=== PATIENT | female | born 1965 | race Caucasian/White ===

== ENCOUNTER 2020-04-01 15:05 | Outpatient (CLI) | payer OTHER, SELFPAY ==
--- NOTE | ~2020-04-01 | MM_ITS ---
EXAMINATION: MM screening [facility] BI w [place] HISTORY: Screening mammogram TECHNIQUE: Craniocaudal and mediolateral oblique 3-D tomosynthesis images were obtained and synthetic 2-D images were generated. CAD analysis was submitted and interpreted. COMPARISON: Comparison to multiple prior studies sequentially, with oldest reviewed study dated 03/22. BREAST PARENCHYMAL COMPOSITION: There are scattered areas of fibroglandular density. FINDINGS: There is a new mass in the lower outer quadrant of the right breast, middle third. The left breast is stable without evidence for malignancy. IMPRESSION: 1. New right breast mass, lower outer quadrant, middle third. 2. Additional mammographic views and possible breast ultrasound are recommended. BI-RADS Category 0: Incomplete: Needs additional imaging evaluation. Reviewed, dictated and finalized at location A. IMPRESSION: 1. New right breast mass, lower outer quadrant, middle third. 2. Additional mammographic views and possible breast ultrasound are recommended . BI-RADS Category 0: Incomplete: Needs additional imaging evaluation.
== END 2020-04-01 15:06 | disposition home or self-care (01) ==
LOC: ANHIMG 15:13
PROVIDERS: PCP Internal Medicine
DX: Z12.31 Encounter for screening mammogram for malignant neoplasm of breast (principal); R92.8 Other abnormal and inconclusive findings on diagnostic imaging of breast
CPT/HCPCS: 77063; 77067

== ENCOUNTER 2020-04-22 13:32 | Outpatient (CLI) | payer OTHER, SELFPAY ==
--- NOTE | ~2020-04-22 | MMUS_ITS ---
EXAMINATION: MM diagnostic mammo unilat RT, US breast RT complete HISTORY: Follow-up possible right breast mass TECHNIQUE: Additional 3-D tomosynthesis images of the right breast were performed and synthetic 2-D i mages were generated. CAD analysis was submitted and interpreted. High resolution right breast ultras ound was performed. COMPARISON: Comparison to multiple prior studies sequentially, with oldest reviewed study dated 03/05. BREAST PARENCHYMAL COMPOSITION: Breast composed of scattered areas of fibroglandular density FINDINGS: MAMMOGRAPHIC FINDINGS: There is a 5 mm mass in the subareolar location of the right breast. No suspicious calcifications or architectural distortion. ULTRASOUND: Right breast ultrasound: At 7:00 near the nipple there is a 5 mm cyst in the abnormality seen on mammography. IMPRESSION: 1. No evidence for malignancy in the right breast. Benign finding. 2. Routine yearly screening mammogram and regular clinical breast examination are recommended. BI-RADS Category 2: Benign finding(s). Reviewed, dictated and finalized at location A. IMPRESSION: 1. No evidence for malignancy in the right breast. Benign finding. 2. Routine yearly screening mammogram and regular clinical breast examination a re recommended. BI-RADS Category 2: Benign finding(s).
== END 2020-04-22 13:33 | disposition home or self-care (01) ==
PROVIDERS: PCP Internal Medicine
DX: R92.8 Other abnormal and inconclusive findings on diagnostic imaging of breast (principal)
CPT/HCPCS: 76641; 77065

== ENCOUNTER 2021-04-23 13:52 | Outpatient (CLI) | payer OTHER, SELFPAY ==
--- NOTE | ~2021-04-23 | MM_ITS ---
EXAMINATION: MM screening [facility] BI w [place] HISTORY: Screening TECHNIQUE: Craniocaudal and mediolateral oblique 3-D tomosynthesis images were obtained and synthetic 2-D images were generated. CAD analysis was submitted and interpreted. COMPARISON: Comparison to multiple prior studies sequentially, with oldest reviewed study dated 03/03. BREAST PARENCHYMAL COMPOSITION: There are scattered areas of fibroglandular density. FINDINGS: There are focal asymmetry central aspect of the right breast without discrete mass or suspi cious cluster of calcifications. The left breast is stable without evidence for malignancy. IMPRESSION: 1. Focal right breast asymmetry centrally, mid breast. 2. Additional mammographic views and possible breast ultrasound are recommended. BI-RADS Category 0: Incomplete: Needs additional imaging evaluation. Reviewed, dictated and finalized at location A. IMPRESSION: 1. Focal right breast asymmetry centrally, mid breast. 2. Additional mammographic views and possible breast ultrasound are recommended . BI-RADS Category 0: Incomplete: Needs additional imaging evaluation.
== END 2021-04-23 13:53 | disposition home or self-care (01) ==
PROVIDERS: PCP Internal Medicine; Visit Provider Internal Medicine
DX: Z12.31 Encounter for screening mammogram for malignant neoplasm of breast (principal); R92.8 Other abnormal and inconclusive findings on diagnostic imaging of breast
CPT/HCPCS: 77063; 77067

== ENCOUNTER 2021-05-20 13:07 | Outpatient (CLI) | payer OTHER, SELFPAY ==
--- NOTE | ~2021-05-20 | MM_ITS ---
EXAMINATION: MM diagnostic [facility] RT w [place] HISTORY: Right breast focal asymmetry on screening mammogram TECHNIQUE: Additional 3-D tomosynthesis images of the right breast were performed and synthetic 2-D i mages were generated. CAD analysis was submitted and interpreted. COMPARISON: 04/23/2021, 04/22/2020, 04/01/2020, 02/21/2019 FINDINGS: There is a return to baseline fibroglandular appearance with spot compression of the right breast in the area questioned on screening mammogram. IMPRESSION: 1. No mammographic evidence of malignancy. 2. Recommend routine screening mammography in one year. BI-RADS Category 1: Negative Reviewed, dictated and finalized at location B.
== END 2021-05-20 13:08 | disposition home or self-care (01) ==
PROVIDERS: PCP Internal Medicine
DX: R92.8 Other abnormal and inconclusive findings on diagnostic imaging of breast (principal)
CPT/HCPCS: 77061; 77065; G0279

== ENCOUNTER 2022-08-14 13:05 | Outpatient (CLI) | payer OTHER, SELFPAY ==
--- NOTE | ~2022-08-14 | MM_ITS ---
EXAMINATION: MM screening [facility] BI w [place] HISTORY: Screening mammogram TECHNIQUE: Craniocaudal and mediolateral oblique 3-D tomosynthesis images were obtained and synthetic 2-D images were generated. CAD analysis was submitted and interpreted. COMPARISON: 05/20/2021, 04/23/2021, 04/22/2020, 04/01/2020, 02/21/2019 BREAST PARENCHYMAL COMPOSITION: The breasts are heterogeneously dense, which may obscure small masses . FINDINGS: There is chronic focal asymmetry in the central left breast. No suspicious mass, calcificat ion, or architectural distortion are identified in either breast to suggest malignancy. There has bee n no suspicious interval change. IMPRESSION: 1. No mammographic evidence of malignancy. 2. Recommend routine screening mammography in one year. BI-RADS Category 2: Benign finding(s). Reviewed, dictated and finalized at location A. APPLICATION ARCHITECT
== END 2022-08-14 13:06 | disposition home or self-care (01) ==
DX: Z12.31 Encounter for screening mammogram for malignant neoplasm of breast (principal)
CPT/HCPCS: 77063; 77067

== ENCOUNTER 2023-12-23 08:52 | Outpatient (CLI) | payer OTHER, SELFPAY ==
--- NOTE | ~2023-12-23 | MM_ITS ---
EXAMINATION: MM screening [facility] BI w [place] HISTORY: Screening TECHNIQUE: Craniocaudal and mediolateral oblique 3-D tomosynthesis images were obtained and synthetic 2-D images were generated. CAD analysis was submitted and interpreted. COMPARISON: Comparison to multiple prior studies sequentially, with oldest reviewed study dated 04/23. BREAST PARENCHYMAL COMPOSITION: There are scattered areas of fibroglandular density. FINDINGS: There is no evidence of suspicious mass, calcification, or architectural distortion to sugg est malignancy in either breast. There has been no suspicious interval change. IMPRESSION: 1. No mammographic evidence of malignancy. 2. Recommend routine screening mammography in one year. BI-RADS Category 1: Negative Reviewed, dictated and finalized at location A.
== END 2023-12-23 08:53 | disposition home or self-care (01) ==
LOC: ANHIMG 08:57
DX: Z12.31 Encounter for screening mammogram for malignant neoplasm of breast (principal)
CPT/HCPCS: 77063; 77067

== ENCOUNTER 2024-07-24 23:01 | Emergency (ER) | payer OTHER, SELFPAY ==
--- NOTE | ~2024-07-24 | CT_ITS ---
Non-contrast Head CT History: Head injury Technique: Axial non-contrast imaging of the brain was performed. Dose reduction technique was used on this scan by utilizing automated exposure control and iterative reconstruction technique. The dose -length product (DLP) was 681.00 mGy-cm. Findings: There is no evidence of intracranial hemorrhage, mass lesion, or acute infarct. Brain par enchyma appears normal. The ventricles and subarachnoid spaces are normal in size. The calvarium ap pears normal. The visualized paranasal sinuses and mastoid air cells are clear. There is superficial hematoma at the left infraorbital region. Impression: No intracranial abnormality seen. Hematoma at the left infraorbital region. Reviewed, dictated and finalized at [facility]. DRY PRESS OPERATOR Impression: No intracranial abnormality seen. Hematoma at the left infraorbital region.
--- NOTE | ~2024-07-24 | CT_ITS ---
CT Facial Bones and Cervical Spine Clinical Indication: Status post fall, injury Technique: Contiguous axial scans were obtained through the facial bones and cervical spine followed by coronal and sagittal reconstructions. Dose reduction technique was used on this scan by utilizing automated exposure control and iterative reconstruction technique. The dose-length product (DLP) was 175.83 mGy-cm. Findings: CT facial bones: No fractures are identified. The visualized paranasal sinuses are clear. Intraorbita l soft tissues appear normal. There is left periorbital soft tissue swelling with superficial hematom a over the left maxillary region/left cheek. CT cervical spine: No fractures or subluxation. Intervertebral disc spaces are relatively well-prese rved. There is right facet arthropathy at C2-C3, mild right neural foraminal narrowing. No prevertebr al soft tissue swelling. Impression: No fracture is seen in the facial bones. Left periorbital soft tissue swelling with superficial hematoma over the left maxillary region/left c heek. No fracture or subluxation of the cervical spine. Reviewed, dictated and finalized at location M. GER RN Impression: No fracture is seen in the facial bones. Left periorbital soft tissue swelling with superficial hematoma over the left m axillary region/left cheek. No fracture or subluxation of the cervical spine.
--- NOTE | ~2024-07-24 | XR_ITS ---
Left Hand Technique: PA, oblique, and lateral views were obtained. Clinical History: Fifth digit injury Findings: No acute fracture or dislocation is seen. Osseous alignment is anatomic. There is mild to m oderate degenerative change of the first CMC joint. Soft tissues are unremarkable. Impression: [id number] degenerative change of the first CMC joint. Reviewed, dictated and finalized at location . MAKER Impression: [id number] degenerative change of the first CMC joint.
[2024-07-24 23:04] VITALS: BP 174/93; PULSE 94; RESP 16; TEMP 36.3; O2SAT 100
--- NOTE | 2024-07-24 23:09 | PC.NURSE ---
Pt has significant bruising and swelling to L. cheek. swollen upper and bottom lip. 2 upper teeth missing. Bleeding controlled.
[2024-07-24 23:31] VITALS: BP 154/95; PULSE 90; RESP 10; O2SAT 99
--- NOTE | 2024-07-24 23:31 | ED.FALL ---
HPI - Fall General Chief Complaint: Fall Stated Complaint: FALL, FACIAL TRAUMA Time Seen by Provider: 07/24/24 23:19 History of Present Illness HPI Narrative: 59-year-old female presents to the emergency department via EMS after a ground level fall that occurred prior to arrival. Patient states she was leaving a bar after having 4 beers when she tripped on uneven concrete and fell to the ground. States she landed on her face. She did not lose consciousness. She is not anticoagulated. She is presenting with pain and swelling beneath the left orbit, pain and swelling to the left upper lip. She states she lost 3 teeth during the fall. She is also reporting pain to her left pinky. Last Tdap unknown. Patient denies vision changes, focal numbness or weakness. Related Data Allergies Allergy/AdvReac Type Severity Reaction Status Date / Time No Known Allergies Allergy Unverified 08/23/11 09:53 Review of Systems Review of Systems: All systems reviewed & are unremarkable except as noted in HPI and below Exam Narrative: GENERAL: Well-appearing, well-nourished, and in no acute distress. HEAD: Normocephalic, atraumatic. EYES: PERRLA and EOMI. No proptosis, no scleral or conjunctival changes to the left eye ENT: Nares clear, no rhinorrhea or epistaxis. Mucous membranes moist. No epistaxis, no septal hematoma. Hematoma with overlying ecchymosis inferior to the left orbit. Edema to the left upper lip with abrasion just superior to the left lip, but no internal or external lacerations. Teeth 9and 11 are completely missing, tooth #10 is fractured at the gum line. Otherwise no internal or external lacerations to the mouth. NECK: No midline cervical spinous tenderness, step-offs or deformities BACK: No midline thoracolumbar spinous tenderness, step-offs or deformities CHEST: Clear to auscultation. No respiratory distress. HEART: Regular rate and rhythm. No murmur heard. Normal peripheral pulses. ABDOMEN: Soft, nontender, nondistended, normal active bowel sounds. EXTREMITIES: LUE: Tenderness to the 5th MCP and PIP with overlying edema. No tenderness remainder of hand, wrist, no snuffbox tenderness. Cap refill less than 2. Radial pulse 2 +. Sensation intact. Full active and passive range of motion of all digits. No tenderness remainder of upper lower extremities with full range of motion of all extremities. SKIN: See ENT exam NEURO: No focal deficits. Alert and oriented x3 Course Vital Signs Vital signs: Vital Signs Temperature 97.3 F L 07/24/24 23:04 Pulse Rate 94 07/24/24 23:04 Respiratory Rate 16 07/24/24 23:04 Blood Pressure 174/93 H 07/24/24 23:04 Pulse Oximetry 100 07/24/24 23:04 Oxygen Delivery Room Air 07/24/24 23:04 Temperature 97.3 F L 07/24/24 23:04 Pulse Rate 86 07/25/24 03:35 Respiratory Rate 18 07/25/24 03:35 Blood Pressure 98/60 L 07/25/24 03:35 Pulse Oximetry 98 07/25/24 03:35 Oxygen Delivery Room Air 07/24/24 23:04 MDM - Fall MDM Narrative Medical decision making narrative: 59-year-old female presents emergency department after ground level mechanical fall that occurred prior to arrival. Patient did reportedly have 4 beers prior to injury. Vitals with hypertension 174/93, otherwise unremarkable. Exam is significant for the above. Patient is neurovascular intact. Patient lost teeth #9-11 as noted above. There are no intraoral lacerations to suture. She does have significant edema and hematoma inferior to the left to. She has no signs of a retrobulbar hematoma including eye pain, no proptosis, no vision changes. CT brain shows no acute intracranial hemorrhage, no midline shift or mass effect. There is territorial jernigan-white matter differentiation maintained throughout and age-related cerebral volume loss. CT facial bones and cervical spine showed no acute findings. Patient updated on workup. She was given her Tdap vaccine and a dose of [place] with improvement in symptoms. Her friends are now at bedside. She does not appear clinically intoxicated. Wounds were cleaned with normal saline. Encouraged rice, Tylenol/ibuprofen for pain will provide short course of [place] for breakthrough pain. Encouraged follow-up with her dentist and PCP. Strict ED return precautions discussed. She is agreeable with the plan verbalized understanding. When the patient stood up quickly to leave, she became very diaphoretic, lightheaded, dizzy and nauseous. The patient sat back down in the bed and lost consciousness for a few seconds. This was all witnessed by nursing staff. I immediately went into the room and she woke up shortly after. Patient was pale and diaphoretic and stated she felt nauseous. After a few seconds she returned to baseline. Suspect she had a vasovagal or orthostatic episode. She denies chest pain or shortness of breath. I did offer to obtain lab work and and EKG, however she declined states she like to go home. After several minutes of monitoring she ambulated in the ED without difficulty. Discharged in stable condition. Discharge Plan Discharge Clinical Impression: Facial hematoma, Dental trauma Patient Disposition: Home, Self-Care Condition: Stable Instructions: Antibiotic Form, Head Injury (ED), Acute Dental Trauma (ED), Abrasion (ED), Hematoma (ED) Additional Instructions: Your evaluated in the emergency department after he tripped and fell on the sidewalk. The CT of your head, face and cervical spine show no acute findings. The x-ray of your hand is unremarkable. Please keep your wounds clean and dry. Take Tylenol ibuprofen as needed for pain and [place] for breakthrough pain. Please follow-up closely with her primary care provider in your dentist. Return to the emergency department if you develop vision changes, focal numbness or weakness, your unable to tolerate food or fluids, develops signs of infection, or other concerning symptoms. Prescriptions: New hydrocodone-acetaminophen 5-325 mg tablet 1 tablet PO Q8H PRN (Reason: pain) Qty: 14 0RF Follow-up/Referrals: Alesia Zelaya [Other]
--- NOTE | 2024-07-24 23:48 | PC.NURSE ---
pt offered tetanus vaccination. Pt states she is not sure if she wants it at this time and would like to hold off on getting it for now
[2024-07-24 23:49] VITALS: RESP 20
[2024-07-25] VITALS (21 sets, daily range): BP systolic 68–186; BP diastolic 44–128; PULSE 86–110; RESP 13–24; O2SAT 92–100
[2024-07-25] MEDS: HYDROcodone/acetaminophen (*CRX) 5-325 MG TABLET 1 TAB PO (01:59)
--- NOTE | 2024-07-25 03:04 | PC.NURSE ---
pt visitors report pt tried to stand up and started to act strangely. Pt reports nausea, light headedness ad diaphoresis. Gilma at bedside
--- NOTE | 2024-07-25 03:19 | PC.NURSE ---
pt stood up and once again became hot and diaphoretic. Pts bp dropped to 74/44. Pt back in bed with both bed rails up. Gilma notified
[2024-07-25] MEDS: TETANUS,DIPHTHERIA,AC PERTUSSIS ADULT (0.5 ML) BOOSTRIX IM (03:25)
--- NOTE | 2024-07-25 03:33 | PC.NURSE ---
Swelling and bruising noted to pts left side of face. Dried blood and laceration noted to left upper lip. Pt states she is ready to leave.
== END 2024-07-25 03:37 | disposition home or self-care (01) ==
PROVIDERS: Emergency Provider Physician Assistant
DX: S05.12XA Contusion of eyeball and orbital tissues, left eye, initial encounter (principal); K08.119 Complete loss of teeth due to trauma, unspecified class; W01.0XXA Fall on same level from slipping, tripping and stumbling without subsequent striking against object, initial encounter; Z23 Encounter for immunization
CPT/HCPCS: 70450; 70486; 72125; 73130; 90471; 90715; 99284; A9270

== ENCOUNTER 2024-12-27 15:54 | Outpatient (CLI) | payer OTHER, SELFPAY ==
--- NOTE | ~2024-12-27 | MM_ITS ---
EXAMINATION: MM screening cathy BI w k[place] HISTORY: Screening TECHNIQUE: Craniocaudal and mediolateral oblique 3-D tomosynthesis images were obtained and synthetic 2-D images were generated. CAD analysis was submitted and interpreted. COMPARISON: Comparison to multiple prior studies sequentially, with oldest reviewed study dated 04/01. BREAST PARENCHYMAL COMPOSITION: Dense: The breasts are heterogeneously dense, which may obscure small masses FINDINGS: There is no evidence of suspicious mass, calcification, or architectural distortion to sugg est malignancy in either breast. There has been no suspicious interval change. IMPRESSION: 1. No mammographic evidence of malignancy. 2. Recommend routine screening mammography in one year. BI-RADS Category 1: Negative Reviewed, dictated and finalized at location B.
--- OUTSIDE RECORDS SUMMARY | 2024-12-27 16:01 | XMS_ITS | Data Portability ---
Author Organization [facility] Address [address] [place] [address] Assessment No assessment recorded. Plan of Treatment Reminders Order Date Submit Date Provider Last Modified By Organization Details Last Modified Time Details Appointments None record ed. Lab vitami n D, 25-hyd ar, total, serum 2023 [email or web address] [facility], [address], [place], [address], 12:06:20 CBC w/ auto diff 2023 024 [email or web address] [facility], [address], [place], [address], 12:07:03 CMP, serum or plasma 2023 024 [facility], [address], [place], [address], 12:05:52 TSH, serum or plasma 2023 024 [email or web address] [facility], [address], [place], [address], 12:06:44 Referral cardio logist referr al - Please review and contac t Pt to cortez genao, thank you 2024 025 [facility], [address] [place] [address], [address], 5 10:22:20 podiat rist referr al - Please review and contac t Pt to cortez genao, thank you. 2023 024 [facility], [address], [place], [address], 11:34:51 Procedures None record ed. Surgeries None record ed. Imaging XR, foot, 3 or more view 2023 [facility], [address], [place], [address], 08:22:37 Medication Orders losart an 100 mg tablet 2024 [facility] [address], [address], [place], [address], 13:15:11 pantop razole 40 mg tablet ,delay ed releas e 2024 [facility] [address], [address], [place], [address], 13:15:10 ibupro fen 600 mg tablet 2023 [facility] [address], [address], [place], [address], 11:42:31 clonid ine HCl 0.1 mg tablet 2023 [facility] [address], [address], [place], [address], 11:42:30 losart an 50 mg tablet 2023 everette [facility] [address], [address], [place], [address], 12:44:34 famoti dine 20 mg tablet 2023 rosalie [facility] [address], [address], [place], [address], 02/14/202 5 13:10:39 buspir one 7.5 mg tablet 2023 024 [facility] [address], [address], [place], [address], 4 11:42:29 gage ukast 10 mg tablet 2022 023 alexandro [facility] [address], [address], [place], [address], 4 15:52:42 ibupro fen 600 mg tablet 2022 023 [facility] [address], [address] , [place], [address], 3 14:16:28 famoti dine 20 mg tablet 2022 023 sreichmarquis [facility] [address], [address], [place], [address], 5 13:10:39 clonid ine HCl 0.1 mg tablet 2022 023 [facility] [address], [address] , [place], [address], 3 14:16:29 losart an 25 mg tablet 2022 023 [email or web address] [address], [address] , [place], [address], 4 14:36:43 buspir one 7.5 mg tablet 2022 023 [facility] [address], [address] , [place], [address], 3 14:16:26 Patient TargetsNo targets recorded. Patient Instructions Encounter Date Encounter Id Patient Instructions Last Modified By Organization Details Last Modified Time 06/02/2023 [id number] A healthy lifestyle: care instructions rosalie Not available 06/02/2023 14:16:21 12/26/2023 [id number] high blood pressure: care instructions sreichling Not available 12/26/2023 21:42:53 ganglions: care instructions sreichling Not available 12/26/2023 21:42:53 10/26/2024 [id number] A healthy lifestyle: care instructions sreichling Not available 10/26/2024 13:15:01 rhythm strip, EKG* LUTHER Not available 11/13/2024 11:09:42 Reason for Referral Talent Development Specialist Referral for Pain in left foot foot pain Please review and contact Pt to schedule, thank you. Referring Physician: Alesia Zelaya [facility], Encounter Date: 06/20/2024 Automatic Glove Former Referral for Ch est pain uncontrolled HTN & intermittent CP Please review and contact Pt to schedule, thank you Referring Physician: Alesia Zelaya [facility], Encounter Date: 10/26/2024 Results Created Date Observation Date Name Description Value Unit Range Abnormal Flag Note LastModifiedBy Organization Detail LastModifiedTime 08/31/20 23 08/31/2023 COLOG UARD cologuard result reportable NEGATI VE negati ve normal NEGAT ROMARIO TEST RESUL T. A negat romario Colog uard resul t indic ates a low likel ihood that a color ectal cance r (CRC) or advan connor adeno ma (alex omato us polyp s with more advan connor pre-m align ant featu res) is prese nt. The chanc e that a perso n with a negat romario Colog uard test has a color ectal cance r is less than 1 in 1500 (nega tive predi ctive value >99.9 %) or has an advan connor adeno ma is less than 5.3% (nega tive predi ctive value 94.7% ). These data are based on a prosp ectiv e cross -sect ional study of 10,00 0 indiv idual s at [place] [facility] risk for color ectal cance r who were scree babs with both Colog uard and colon oscop y. (Teresa Morrison et al, N Engl J Med 2014; 370(1 4):12 86-12 97) The jennifer l value (refe rence range ) for this assay is negat romario. COLOG UARD RE-SC ANISA OROPEZA RECOM MENDA TION: Perio dic color ectal cance r scree dai is an impor tant part of preve ntive healt hcare for asymp tomat ic indiv idual s at [facility] risk for color ectal cance r. Follo wing a negat romario Colog uard resul t, the Ameri can Cance r Socie ty and U.S. Multi -Soci ety Task Force scree dai guide lines recom mend a Colog uard re-sc reesandi ng inter jose of 3 years . Refer ences : Ameri can Cance r Socie ty Guide line for Color ectal Cance r Scree dai: https ://donta w.can cer.o rg/ca ncer/ colon -rect al-ca ncer/ detec tion- diagn osis- stagi ng/ac s-rec ommen datio ns.ht ml.; Umang DK, Miryam white CR, Berny BoltonK, Color ectal Cance r Scree dai: Recom menda tions for Physi cians and Patie nts from the U.S. Multi -Soci ety Task Force on Color ectal Cance r Scree dai , Am Che jennings y 2017; 112:1 016-1 030. TEST DESCR IPTIO N: De Lamere site algor ithmi c leigha sis of stool DNA-b ionixon kers with hemog lobin immun oassa y. Quant itati ve value s of indiv idual bioma rkers are not repor table and are not assoc iated with indiv idual bioma rker resul t refer ence range s. Colog uard is inten ded for color ectal cance r scree dai of adult s of eithe r sex, 45 years or older , who are at [facility] for color ectal cance r (CRC) . Colog uard has been appro jey for use by the U.S. FDA. The perfo rmanc e of Colog uard was estab seun d in a cross secti onal study of [facility] sk adult s aged 50-84 . Colog uard perfo rmanc e in patie nts ages 45 to 49 years was estim ated by autumn-g rosa leigha sis of near- age group s. Colon oscop ies perfo rmed for a posit romario resul t may find as the most clini ro signi fican t lesio n: color ectal cance r [4.0% ], advan connor adeno ma (incl uding sessi le annabelle deny polyp s great er than or equal to 1cm diame ter) [20%] or non- advan connor adeno ma [31%] ; or no color ectal neopl deya [45%] . These estim ates are deriv ed from a prosp ectiv e cross -sect ional scree dai study of 0 indiv idual s at [facility] risk for color ectal cance r who were scree babs with both Colog uard and colon oscop y. (Teresa Morrison et al, N Engl J Med 2014; 370(1 4):12 86-12 97.) Colog uard may produ ce a false negat romario or false posit romario resul t (no color ectal cance r or preca ncero us polyp prese nt at colon oscop y follo w up). A negat romario Colog uard test resul t does not guara ntee the absen ce of CRC or advan connor adeno ma (pre- cance r). The curre nt Colog uard scree dai inter jose is every 3 years . (Amer ican Cance r Socie ty and U.S. Multi -Soci ety Task Force ). Colog uard perfo rmanc e data in a 0 patie nt pivot al study using colon oscop y as the refer ence metho d can be acces sed at [facility] locat ion: www.e xactl abs.c om/re sults . Addit ional descr iptio n of the Colog uard test proce ss, warni ngs and preca ution s can be found at www.c dimas perezd.c om. Not Available [facility] (Cologuard Orders Only) [address], [place], [address], 09/08/2023 09:53:23 12/23/19 24 12/23/2023 MAMMO , scree dai, digit al, bilat eral No observ ation record ed. [facility] [address], [place], [address], 12/26/2023 21:40:52 06/22/20 24 06/20/2024 XR, foot, 3 or more view No observ ation record ed. [facility] [address] [place], [address], 06/22/2024 12:09:15 07/25/20 24 07/24/2024 XR, facia l bones No observ ation record ed. [facility] [address], [place], [address], 07/25/2024 10:39:02 11/14/19 25 10/27/2024 rhyth m strip , EKG* No observ ation record ed. [facility] [address] [place], [address], 11/15/2024 10:11:59 Result Notes None recorded. Problems Name Problem SNOMED Code Status Onset Date Resolution Date Notes Provider Name and Address Organization Details Recorded Time Gastroeso phageal reflux disease 806509038 Active 2017 DAT Miranda, [place] [facility] 8 13:46:44 Hypertrig lyceridem ia 431668153 Active 2018 DAT Miranda, [place] [facility] 9 12:27:07 Essential hypertens ion 69800467 Active 2018 ISSA Ryan, [place] - [facility] 9 13:31:28 Seasonal allergy 684058805 Active 2019 Didi Oakley LPN [place], [place] [facility] 0 15:18:11 Mammograp hic mass of right breast 74268577671 313784 Active 2019 Didi Oakley LPN [place] [facility] 0 13:47:01 Administr ation of influenza vaccine Active 2019 Alyce Adamson [place] [facility] 0 13:47:03 Screening for malignant neoplasm of colon Active 2019 Alyce Adamson [place] [facility] 0 13:47:22 Tolerant non-smoke r 20101752 Active 2019 Alyce Adamson [place] [facility] 0 13:52:40 Osteoarth ritis 768672362 Active 2019 Alesia Zelaya NP Attn: Accounting ,[address] [place], [address] , [place] [facility] 0 10:19:53 Administr ation of SARS-CoV- 2 antigen vaccine Active 2020 Didi Oakley LPN [place] [facility] 1 14:20:35 Screening for malignant neoplasm of cervix Active 2020 Didi Oakley LPN [place] [facility] 1 14:21:04 Ex-smoker 9133171 Active 2020 Didi Oakley LPN [place] [facility] 1 14:24:00 Screening mammograp hy Active 2020 Didi Oakley LPN [place] [facility] 1 14:42:41 Body mass index 25-29 - overweigh t 310544973 Active 2020 Didi Oakley LPN [place] [facility] 1 14:50:09 Hyperlipi demia 50948050 Active 2021 Didi Oakley LPN [place] [facility] 2 15:24:01 Overweigh t 506312098 Active Belinda Diop [place] [facility] 6 15:12:46 Anxiety 78337920 Active Belinda Diop [place] [facility] 6 15:12:46 Increased blood pressure 19361690 Active Belinda Diop [place] [facility] 6 15:12:46 Cough 49741149 Completed 05/24/2019 Alyce Adamson [place] [facility] 9 16:59:30 Mammograp hy abnormal 811949489 Active Belinda Diop [place] [facility] 6 15:12:46 Carpal tunnel syndrome 92848663 Active Bel[place] Diop [place] [facility] 6 15:25:48 Conjuncti vitis 0645148 Completed 05/24/2019 Alyce Adamson [place] [facility] 9 16:59:23 Panic disorder without agoraphob ia 99834912 Active 2013 Not Available [facility] 7 00:55:41 Generaliz ed anxiety disorder 43753838 Active 2013 Not Available [facility] 7 00:55:41 Acute sinusitis 86874429 Active 2013 Not Available [facility] 7 00:55:41 Contact dermatiti s due to plants, except food Completed 201305/24/2019 Alyce Adamson [place] [facility] 9 16:59:27 Problem Notes None recorded. Procedures Surgical History Date Name Laterality Status Provider Name and Address Organization Details Recorded Time 12/23/19 24 Date of Last Mammogram completed Andree Rangel [place] [facility] 12/26/2023 15:55:19 03/21/20 18 Joint Injection completed Jeanie Welsh CMA [place] [facility] 2017 14:46:56 10/25/19 18 Joint Injection completed Jeanie Welsh CMA [place] [facility] 2017 17:52:51 09/01/20 17 Joint Injection completed [place] [facility] 09/16/19 18 16:28:49 06/10/20 17 Joint Injection completed Jeanie Welsh CMA [place] [facility] 2016 16:27:26 09/12/19 16 Carpal tunnel surgery completed Kika Moe [place] [facility] 10/04/2016 09:50:55 09/12/18 91 Appendectomy completed Jjshahabdevikaaugust Hoffmann [place] [facility] 08/20/2014 15:01:17 Carpal tunnel surgery completed Andree Rangel [place] [facility] 12/26/2023 15:57:22 release of trigger thumb completed Andree Rangel [place] [facility] 12/26/2023 15:57:34 Imaging Results Imaging Date Name Status LastModified by Organiz ation Details LastModified Time 12/23/2023 MAMMO, screening, digital, bilateral completed [address] [place] [address], [address], 12/26/2023 21:40:52 06/20/2024 XR, foot, 3 or more view completed [facility] [address] [place], [address], 06/22/2024 12:09:15 07/24/2024 XR, facial bones completed [address] [place] [address], [address], 07/25/2024 10:39:02 10/27/2024 rhythm strip, EKG* completed [facility] [address] [place], [address], 11/15/2024 10:11:59 Procedure Notes None recorded. Medical Equipment None Reported. Allergies Allergen ID Allergen Name Allergen Category Reaction Reaction Severity Criticality Documentation Date Start Date Code Code System Note Provider Name and Address Organization Details Recorded Time 856424 lisinopri l medicatio n cough Not available Not available 10/27/2021 04787 RxNorm Not Available Not Available Not Available 150853 amlodipin e medicatio n edema Not available Not available 10/27/2021 51629 RxNorm Not Available Not Available Not Available Medications Name Sig Start Date Stop Date Status Note LastModified by Organization Details LastModified Time losartan 50 mg tablet TAKE 2 TABLET BY MOUTH ONCE DAILY DIRECTED active Not Available Not Available No t Available amoxicill in 500 mg capsule 01/17 completed Not Available Not Available Not Available buspirone 5 mg tablet Take 1 tablet by mouth twice daily 11/09 completed Not Available Not Available Not Available clonidine HCl 0.1 mg tablet TAKE 1 TABLET BY MOUTH ONCE DAILY NEEDED active Not Available Not Available No t Available Celestone Soluspan 6 mg/mL suspensio n for injection Take 12 mg by injectio n route as directed . 07/19 completed Not Available Not Available Not Available famotidin e 40 mg tablet Take 0.5 tablets every day by oral route as directed for 30 days. 05/28 completed Not Available Not Available Not Available clobetaso l 0.05 % topical cream clobetas ol 0.05 % topical cream; 1 ; TOP; BID; not for prolonge d use. on occassio n for rhus on face 10/25 completed Not Available Not Available Not Available permethri n 5 % topical cream APPLY (THOROUG HLY MASSAGE INTO SKIN FROM HEAD TO SOLES OF FEET) BY TOPICAL ROUTE ONCE LEAVE ON FOR 8-14 HR, THEN REMOVE BY THOROUGH WASHING 02/12 completed Not Available Not Available Not Available Atarax 10 mg tablet Atarax 10 mg tablet; 1-2 Tablet(s ); PO; QID; for panic; UOM: Tablet; D/C Reason: Disconti nued 01/21 completed Not Available Not Available Not Available amlodipin e 2.5 mg tablet Take 1 tablet every day by oral route in the evening for 30 days. 10/27 completed edema Not Available Not Available Not Available Zyrtec 10 mg tablet Zyrtec 10 mg tablet; 1 Tablet(s ); PO; QD; 90 days; Qty: 90 [01/22/20 14 - 04/20/2014 ]; UOM: Tablet 04/20 completed Not Available Not Available Not Available metronida zole 500 mg tablet 06/02 completed Not Available Not Available Not Available ketorolac 0.5 % eye drops INSTILL 1 DROP THREE TIMES DAILY INTO EACH EYE FOR ONE WEEK 03/18 completed Not Available Not Available Not Available bupropion HCl 100 mg tablet Take 1 tablet twice a day by oral route. active Not Available Not Available No t Available famotidin e 20 mg tablet TAKE 1 TABLET BY MOUTH TWICE DAILY 10/26 completed Not Available Not Available Not Available benzonata te 100 mg capsule TAKE 1 CAPSULE BY MOUTH THREE TIMES DAILY NEEDED FOR COUGH 04/30 completed Not Available Not Available Not Available hydrocodo ne 7.5 mg-acetam inophen 325 mg tablet 10/01 completed Not Available Not Available Not Available cephalexi n 500 mg capsule active Not Available Not Available Not Available paroxetin e 20 mg tablet Take 1 tablet every day by oral route in the morning for 30 days. 10/25 completed HIGH BP Not Available Not Available Not Available pantopraz ole 40 mg tablet,de layed release Take 1 tablet by mouth once daily 2024 active Not Available Not Available Not Avai lable erythromy satnam 5 mg/gram (0.5 %) eye ointment APPLY 1 CM RIBBON INTO THE LOWER CONJUNCT IVAL SAC(S) IN THE AFFECTED EYE(S) BY OPHTHALM IC ROUTE 2 TIMES PER DAY for 5 days 10/01 completed Not Available Not Available Not Available ranitidin e 150 mg tablet Take 1 tab daily 07/23 completed Recalled Not Available Not Available Not Available lisinopri l 10 mg tablet Take 1 tablet every day by oral route as directed for 30 days. 12/17 completed D/C due to Adverse reaction - Cough Not Available Not Available Not Available losartan 25 mg tablet TAKE 1 TABLET BY MOUTH ONCE DAILY DIRECTED 07/18 completed Not Available Not Available Not Available buspirone 7.5 mg tablet TAKE 1 TABLET BY MOUTH TWICE DAILY DIRECTED active Not Available Not Available No t Available monteluka st 10 mg tablet TAKE 1 TABLET BY MOUTH ONCE DAILY 12/25 completed Not Available Not Available Not Available ibuprofen 600 mg tablet TAKE 1 TABLET BY MOUTH THREE TIMES DAILY NEEDED active Not Available Not Available No t Available losartan 100 mg tablet TAKE 1 TABLET BY MOUTH ONCE DAILY active Not Available Not Available No t Available fluticaso ne propionat e 50 mcg/actua tion nasal spray,yajaira pension USE 1 SPRAY(S) IN EACH NOSTRIL TWICE DAILY 04/30 completed Not Available Not Available Not Available Atarax 25 mg tablet Atarax 25 mg tablet; 1-2 Tablet(s ); PO; QAM; Qty: 25; prn [10/09/19 14 - ?]; UOM: Tablet; D/C Reason: Disconti nued 01/21 completed Not Available Not Available Not Available amoxicill in 875 mg-potass ium clavulana te 125 mg tablet TAKE 1 TABLET BY MOUTH EVERY 12 HOURS FOR 14 DAYS 04/30 completed Not Available Not Available Not Available Cinnamon 500 mg capsule Cinnamon 500 mg capsule; 2 Capsule( s); PO; QD; UOM: Capsule; D/C Reason: Disconti nued 01/21 completed Not Available Not Available Not Available Lutera (28) 0.1 mg-20 mcg tablet Lutera (28) 0.1 mg-20 mcg tablet; 1 Tablet(s ); PO; QD; UOM: Tablet 10/25 completed Not Available Not Available Not Available Fish Oil take 1 cap BID active 1,000mg OTC Not Available Not Available Not Available BinaxNOW COVID-19 Ag Self Test kit USE DIRECTED WHEN HAVING COVID 19 SYMPTOMS 10/26 completed Not Available Not Available Not Available Vitals Date Recorded Body height Oxygen saturation Oxygen saturation in Arterial blood by Pulse oximetry Body temperature Heart rate Pain severity - 0-10 verbal numeric rating [Score] - Reported Body mass index (BMI) Body weight Systolic blood pressure Diastolic blood pressure Provider Name and Address Organization Details Last Updated DateTime 3 157.48 cm 98 % 98 % 97.4 [degF] 66 /min 0 24.3 kg/m2 58922.7 9 g 127 mm[Hg] 80 mm[Hg] Eusebio Biggs CMA [place] - [facility] 3 13:56:11 Date Recorded Body height Body mass index (BMI) Body weight Oxygen saturation Oxygen saturation in Arterial blood by Pulse oximetry Pain severity - 0-10 verbal numeric rating [Score] - Reported Heart rate Body temperature Systolic blood pressure Diastolic blood pressure Provider Name and Address Organization Details Last Updated DateTime 4 157.48 cm 24.1 kg/m2 82292.1 9 g 97 % 97 % 4 87 /min 97.4 [degF] 152 mm[Hg] 95 mm[Hg] Andree Rangel MA [facility] 4 15:50:23 Date Recorded Body height Body mass index (BMI) Body weight Oxygen saturation Oxygen saturation in Arterial blood by Pulse oximetry Pain severity - 0-10 verbal numeric rating [Score] - Reported Heart rate Body temperature Systolic blood pressure Diastolic blood pressure Provider Name and Address Organization Details Last Updated DateTime 4 157.48 cm 22.3 kg/m2 43103.2 7 g 99 % 99 % 0 82 /min 97.4 [degF] 146 mm[Hg] 98 mm[Hg] Ariana Simpson MA [facility] 4 11:04:04 Date Recorded Body height Pain severity - 0-10 verbal numeric rating [Score] - Reported Heart rate Body mass index (BMI) Body weight Systolic blood pressure Diastolic blood pressure Provider Name and Address Organization Details Last Updated DateTime 4 157.48 cm 7 77 /min 22.4 kg/m2 19270.0 7 g 157 mm[Hg] 94 mm[Hg] Taylor Zheng MA [facility] 4 14:35:20 Date Recorded Body height Body mass index (BMI) Body weight Oxygen saturation Oxygen saturation in Arterial blood by Pulse oximetry Respiratory rate Body temperature Systolic blood pressure Diastolic blood pressure Provider Name and Address Organization Details Last Updated DateTime 5 157.48 cm 22.4 kg/m2 66679.7 1 g 99 % 99 % 18 /min 97.5 [degF] 153 mm[Hg] 92 mm[Hg] Didi Oakley LPN [facility] 5 12:42:39 Social History Question Answer Notes LastModified by Organizat ion Details LastModified Time Tobacco Smoking Status Former Smoker stopped in 2008 [facility] Ryan, [facility] 12/26/2023 15:56:30 Do You Have An Advance Directive? No Information not available 07/18/2024 What Is Your Level Of Alcohol Consumption? Occasional Information not available 08/20/2014 What Is Your Level Of Caffeine Consumption? Moderate Information not available 11/08/2022 How Much Tobacco Do You Chew? None Information not available 01/01/2016 What Type Of Diet Are You Following? REGULAR Information not available 01/01/2016 Hard Of Hearing Or Deaf In One Or Both Ears? No Information not available 01/01/2016 Legally Blind In One Or Both Eyes? No Information not available 01/01/2016 Live Alone Or With Others? With Others Information not available 08/20/2014 Do You Have A Medical Power Of Shank Pinner? No Information not available 07/18/2024 What Was The Date Of Your Most Recent Tobacco Screening? 10/26/2024 [email or web address] Information not available 10/26/2024 Do You Use Protection During Sex? No Information not available 01/01/2016 Seat Belts Used Routinely Yes Information not available 01/01/2016 Are You Sexually Active? Yes Information not available 01/01/2016 Smoke Alarm In Home Yes Information not available 01/01/2016 At What Age Did You Start Smoking Tobacco? 13 Information not available 03/18/2021 Are You Passively Exposed To Smoke? No Information not available 01/01/2016 How Much Tobacco Do You Smoke? No [email or web address] Information not available 12/26/2023 Do You Use Any Illicit Or Recreational Drugs? No Information not available 11/08/2022 Do You Use Sunscreen Routinely? Yes Information not available 01/01/2016 How Many Years Have You Smoked Tobacco? 20 Information not available 03/18/2021 Do You Or Have You Ever Used Any Other Forms Of Tobacco Or Nicotine? No Information not available 03/18/2021 Sex: Unknown Functional Status Question Answer Note LastModified by Organizat ion Details LastModified Time Are you able to care for yourself? Yes Information not available 08/20/2014 What is your exercise level? Occasional Information not available 01/01/2016 Mental Status None recorded. Family History Relationship Description Onset Age of this Age Resolved Age Notes LastModified by Organization Details LastModified Time Mother Heart disease [email or web address] Not available 2015 15:12:46 Mother Hypertensive disorder [email or web address] Not available 2015 15:12:46 Mother Glaucoma [email or web address] Not available 04/13/2016 15:12:46 Father Heart disease [email or web address] Not available 2015 15:12:46 Father Myocardial infarction [email or web address] Not available 04/13 15:12:46 Medical History Condition Response Coronary Artery Disease N Other N High Blood Pressure Y Atrial Fibrillation N Thyroid Problems N Kidney or Bladder Problems N GI Problems N Depression Y COPD N Blood Clots N Skin Problems N Eating Disorder N Anemia N Heart Attack ([place]) N Anxiety Disorder Y Diabetes N Muscle, Joint, or Bone Problems Y Arthritis Y Seizures/Epilepsy N Acid Reflux (GERD) N Cancer N Stroke N Asthma N Allergies N ADHD N Substance Abuse N High Cholesterol N Hepatitis N Liver Disease N Schizophrenia N Headaches Y Heart Failure N Osteoporosis N Gynecological History Statement/Question Response If Post Menopausal, Age at Menopause 56 Date of Last Mammogram 12/23/2023 Flow Moderate Frequency of Cycle (Q days) 28 Menses Monthly Y Duration of Flow (days) 4 Age at Menarche 10 Current Control Method None Age at First Child LMP Definite Obstetrics History GPAL:G 1 P 0 0 1 0 Type Value Induced 1 Living 0 Total 1 Immunizations Vaccine Type Date Status Note Provider Name and Address Organization Details Recorded Time Influenza, high-dose, trivalent, PF 020 cancelled patient objection Alyce Adams[place], [place] [facility] 06/06/2020 14:01:58 COVID-19, mRNA, LNP-S, PF, 100 mcg/0.5mL dose or 50 mcg/0.25mL dose 021 cancelled patient objection Didi Oakley LPN [place], [place] [facility] 03/18/2021 14:43:50 Pneumococcal conjugate PCV20, polysaccharide [id number] conjugate, adjuvant, PF 025 cancelled patient objection Alesia Zelaya NP Attn: [employer],[address] [place], [address], [place] [facility] 10/26/2024 14:08:53 COVID-19, mRNA, LNP-S, PF, 100 mcg/0.5mL dose or 50 mcg/0.25mL dose 025 cancelled patient objection Alesia Zelaya NP Attn: [employer] , [place], [address], [place] [facility] 10/26/2024 14:08:53 Past Encounters Encounter ID Performer Location Encounter Start Date Encounter Closed Date Diagnosis/Indication Diagnosis SNOMED-CT Code Diagnosis ICD10 Code Diagnosis Note [id number] TONE CervantesC Rajwinder Gilliam [facility] [address] [place] [address] 08/20/2014 14:50:17 08/20/2014 15:30:35 Anxiety 37929881 Increased blood pressure 63712698 [id number] [facility]ia [facility] [address] [place] [address] 01/16/2015 14:37:20 01/16/2015 15:58:15 Screening for malignant neoplasm of colon 717729876 Anxiety 13723360 Advised to take buspar and wellbutrin together BID and will come back in 2 weeks to see how she is doing. Talked about taking time for herself and possibly seeing a counselor. She is worried about dying because she takes care of her disabled fulltime and her mother lives with her. Adult heal th examination [id number] PHILIPP Thomas (Adult Med) [address] [place] [address] 02/07/2015 14:31:37 02/07/2015 15:03:03 Screening for malignant neoplasm of colon [id number] Was contacted about setting up a colonoscop y - decided at this time she does not want to have one done. STates that she has the number when she is ready to have it done. [id number] PHILIPP Thomas (Adult Med) [address] [place] [address] 11/20/2015 13:35:00 11/20/2015 14:15:23 Cough 96556579 R05 Alternate ibuprofen and tylenol for general pain Advised to drink plenty of water Tessalon pearles PRN for cough Discussed that her sx's do not warrant an abx at this time [id number] PHILIPP Thomas (Adult Med) [address] [place] [address] 01/01/2016 14:23:03 01/01/2016 15:00:43 Increased blood pressure 35568193 R03.0 White coat syndrome Her BP at home is normal 1302/82 Cough 21889556 R05 Anxiety 93879343 F41.9 Talked about taking time for herself and possibly seeing a counselor - she is not ready at this time. She is worried about dying because she takes care of her disabled fulltime and her mother lives with her. Continue with buspirone 5mg BID [id number] PHILIPP Thomas (Adult Med) [address] [place] [address] 01/15/2016 13:37:21 01/15/2016 14:33:50 Gynecologic examination 38801929 Z01.411 Screening for malignant neoplasm of breast 936729069 Z12.31 States that she knows she will be due for a mammogram in March Screening for malignant neoplasm of colon 222292468 Z12.11 Advised to make an appointmen t for her colonoscop y consultati on - states that she has the number at home [id number] Cosme Bland MD [address] [place] [place] [address] 03/04/2016 14:09:46 03/04/2016 15:16:20 Hyperlipidemia screening 467714075 Z13.220 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 Screening for disorder 907341138 Z13.9 [id number] Cosme Bland MD [facility] [address] [place] [address] 03/30/2016 14:39:48 03/30/2016 15:48:19 Mammography abnormal 260057568 R92.8 [id number] Cosme Bland MD [facility] [address] [place] [address] 04/13/2016 14:31:12 04/13/2016 16:35:58 Carpal tunnel syndrome 13278427 G56.01 G56.02 Conjunctivitis 6834138 H 10.9 [id number] PHILIPP Thomas (Adult Med) [address] [place] [address] 08/25/2016 13:40:55 08/30/2016 18:00:37 Mammography abnormal 667317666 R92.8 Right breast: repeat mammogram and US as recommende d Screening for malignant neoplasm of colon 913813891 Z12.11 Advised to make an appointmen t for her colonoscop y consultati on - states that she has the number at homed/t her being disabled, will begin with stool card [id number] Kika Moe [place] [facility] [address] [place] [address] 10/01/2016 14:44:20 10/05/2016 12:15:42 Anxiety 09082403 F41.1 Increased blood pressure 43655995 R03.0 [id number] Kika Moe [place] [facility] [address] [place] [address], [place] [address] 06/02/2017 14:58:17 06/02/2017 16:32:55 Anxiety 48766390 F41.1 Increased blood pressure 33715748 R03.0 Acquired t fiction and nonfiction prose writer finger 5187743 M65.319 Backache 647393873 M54.9 [id number] Jeanie Welsh [facility] [address] [facility] [place] [address] 06/10/2017 15:36:30 06/10/2017 16:33:48 Body mass index 25-29 - overweight 783933766 Z68.26 Trigger finger 133359953 1 89190 M65.30 BILATERAL THUMBS [id number] December [facility] [address] [place] [place] [address] 09/01/2017 14:24:42 09/16/2017 16:30:46 Pain in thumb 429237414 M79.595 [id number] Jeanie Blaise [facility] [address] [place] [address] 10/25/2017 13:50:22 10/28/2017 16:12:07 Acquired trigger finger 8722468 M65.319 Pain in finger 87753487 M79.645 Body mass index 25-29 - overweight 810425477 Z68.27 [id number] Andree RangelISSA [facility] [address] [place] [address] 01/03/2018 13:46:45 01/09/2018 12:10:51 Chest pain 38752509 R07.9 EKG normal Adult heal th examination 204214683 Z00.00 [id number] Andree RangelISSA [facility] [address] [place] [address] 01/17/2018 14:02:01 01/20/2018 12:26:41 Acquired trigger finger 0993816 M65.434 [id number] Jeanie Blaise JOHNATHON [facility] [address] [place] [address] 03/21/2018 14:52:58 03/21/2018 16:21:45 Joint pain 15306021 M25.50 [id number] Didi Oakley LPN [facility] [address] [place] [address] 07/19/2018 13:37:40 07/21/2018 11:18:57 Anxiety 03389815 F41.9 CAITLIN 7 score=4 today 07/19/18 Backache 748711629 M54.9 Gastroesop hageal reflux disease 136526107 K21.9 Left flank pain 85979189 9 R10.9 UA WNL likely musculoske letal injury [id number] Jeanie Welsh JOHNATHON [facility] [address] [place] [address] 10/18/2018 13:54:18 10/19/2018 12:33:04 Anxiety 82141948 F41.9 Gastroesop hageal reflux disease 937731742 K21.9 Osteoarthritis 811975224 M19.90 Hand pain Increased blood pressure 65281808 R03.0 [id number] Andree RangelISSA [facility] [address] [place] [address] 02/12/2019 13:47:24 02/12/2019 15:05:09 Gastroesophageal reflux disease 972210289 K21.9 Osteoarthritis 136067664 M19.90 Hand pain Increased blood pressure 61736216 R03.0 Anxiety 87282978 F41.9 Skin lesion 97465393 L98 .9 5 flat changing spots on face Screening mammography 24 484566 Z12.31 Screening for malignant neoplasm of colon 867928689 Z12.11 Adult heal th examination 203194779 Z00.00 [id number] Alesia Zelaya, [employer]ODUCTION SUPPORT SUPERVISOR [facility] [address] [place] [address] 05/24/2019 15:03:09 05/29/2019 12:20:33 Body mass index 25-29 - overweight 736188663 Z68.25 Advised decreased portion sizes, good food choices, limited eating out or fast food and eliminate soda and juice from diet. Advised physical activity daily and offered encouragem ent to continue with positive changes made so far. Fasting li pid profile above reference range 5022876024 09 R79.89 Anxiety 13816263 F41.9 -Pt instructed to not abruptly stop medication -Pt instructed to routinely take medication in order that it may be effective- Avoid alcohol, caffeine, nicotine, and illegal drugs as these can increase the anxiety level and cause sleep problems. Increased blood pressure 19456293 R03.0 - Pt Blood pressure goals discussed - Pt to avoid a diet high in NA+ as well as no added NA+ - Pt to check b/p daily and record as directed and bring record in for review - Pt concerns for increasing symptoms uncontroll ed by medication go to ER for evaluation Osteoarthritis 749810361 M19.90 -Continue Antiinflam matory-may use Biofreeze or Salon Pas patches OTC topically as needed to areas of pain. Gastroesop hageal reflux disease 775456486 K21.9 -Avoid lying flat 3 to 4 hours after eating or drinking. -Elevate the head of bed 4-8 inches. -Avoid tight clothing around the waist. -Decrease dietary fat intake. -Avoid acidic foods (citrus and tomato-bas ed products), alcohol, caffeinate d beverages, chocolate, onions, garlic, salt, and peppermint oil. -Avoid large meals. -Avoid drinking coffee, or carbonated beverages. -Weight loss can help with symptoms, try to diet and exercise. -Stop smoking. 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 Advised physical activity daily and offered encouragem ent to continue with positive changes made so far. Essential hypertension 50061621 I10 BP today 180/108 -Pt uses Clonidine PRN but discussed BP readings high last few times. -Start lisinopril 10 mg daily -today -Pt to continue clonidine PRN - Discussed diet/salt intake/exe rcise. Take occasional BP s, call if consistent ly >140/90. Discussed reasons for sooner f/u than 6 months. Patient verbalizes understand ing. Anxiety 45582548 F41.9 -Pt instructed to not abruptly stop buspirone 5 mg-Pt instructed to routinely take medication in order that it may be effective- Avoid alcohol, caffeine, nicotine, and illegal drugs as these can increase the anxiety level and cause sleep problems. Gastroesop hageal reflux disease 195114458 K21.9 -Avoid lying flat 3 to 4 hours after eating or drinking. -Elevate the head of bed 4-8 inches. -Avoid tight clothing around the waist. -Decrease dietary fat intake. -Avoid acidic foods (citrus and tomato-bas ed products), alcohol, caffeinate d beverages, chocolate, onions, garlic, salt, and peppermint oil. -Avoid large meals. -Avoid drinking coffee, or carbonated beverages. -Weight loss can help with symptoms, try to diet and exercise. -Stop smoking. Osteoarthritis 215972064 M19.90 -Continue Antiinflam matory-may use Biofreeze or Salon Pas patches OTC topically as needed to areas of pain. Seasonal allergy 4117629 04 J30.2 Avoidance/ eliminatio n of offending allergens (e.g., frequent vacuuming, dusting, remove feather pillows from bedroom, change air conditione r filter frequently , removal of house plants, pet control, remove carpet, stuffed animals Saline nasal spray or sinus irrigation as needed helps to wash offending particles which are trapped in airways Antihistam sofía as needed (e.g., claritin, Zyrtec, Ree and Benadryl) Nasal Steroids as needed (Flonase & Nasacort) [id number] Alesia Zelaya NP [facility] [address] [place] [address] 12/05/2019 14:22:29 12/05/2019 14:41:16 Anxiety 31458910 F41.9 -Pt instructed to not abruptly stop buspirone 5 mg-Pt instructed to routinely take medication in order that it may be effective- Avoid alcohol, caffeine, nicotine, and illegal drugs as these can increase the anxiety level and cause sleep problems. Essential hypertension 23097826 I10 -f/u with phone visit-pt states she took her BP this morning @ home was 120/80-pt states she has had a cough since August discussed changing lisinopril but pt declined at this time-Pt to continue clonidine PRN - Discussed diet/salt intake/exe rcise. Take occasional BP s, call if consistent ly >140/90. Discussed reasons for sooner f/u than 6 months. Patient verbalizes understand ing. Gastroesop hageal reflux disease 377936955 K21.9 -Avoid lying flat 3 to 4 hours after eating or drinking. -Elevate the head of bed 4-8 inches. -Avoid tight clothing around the waist. -Decrease dietary fat intake. -Avoid acidic foods (citrus and tomato-bas ed products), alcohol, caffeinate d beverages, chocolate, onions, garlic, salt, and peppermint oil. -Avoid large meals. -Avoid drinking coffee, or carbonated beverages. -Weight loss can help with symptoms, try to diet and exercise. Osteoarthritis 741977902 M19.90 -Continue Antiinflam matory-may use Biofreeze or Salon Pas patches OTC topically as needed to areas of pain. Cough 46666767 R05 [id number] Alesia Zelaya NP [facility] [address] [address] 06/06/2020 13:38:47 06/09/2020 10:11:03 Administration of influenza vaccine 74556997 Z23 PT DECLINES Screening for malignant neoplasm of colon 527971869 Z12.11 Anxiety 22072712 F41.9 Doing well on current medication dose -Pt instructed to not abruptly stop buspirone 5 mg-Pt instructed to routinely take medication in order that it may be effective- Avoid alcohol, caffeine, nicotine, and illegal drugs as these can increase the anxiety level and cause sleep problems. Essential hypertension 42715595 I10 phone visit today BP 127/75 Doing well on treatment. Continue medication as prescribed and diet/exerc ise as previously discussed. Take occasional BP s, call if consistent ly >140/90. Discussed reasons for sooner f/u than 6 months. Patient verbalizes understand ing. Osteoarthritis 940667602 M19.90 No complaints today-Cont inue Antiinflam matory-may use Biofreeze or Salon Pas patches OTC topically as needed to areas of pain. Seasonal allergy 6857320 04 J30.2 Avoidance/ eliminatio n of offending allergens Saline nasal spray or sinus irrigation as needed helps to wash offending particles which are trapped in airways Antihistam sofía as needed (e.g., claritin, Zyrtec, Ree and Benadryl) Nasal Steroids as needed (Flonase & Nasacort) Tolerant non-smoker 8773 9003 Z87.891 stopped in 2008smoke 1/2 PPD Gastroesop hageal reflux disease without esophagitis 071548830 K21.9 Doing well on current dose of medication [id number] Alesia Zelaya NP [facility] [address] [place] [address] 08/29/2020 10:05:17 08/29/2020 10:44:13 Seasonal allergy 843570579 J30.2 Avoidance/ eliminatio n of offending allergens Saline nasal spray or sinus irrigation as needed helps to wash offending particles which are trapped in airways Antihistam sofía as needed (e.g., claritin, Zyrtec, Ree and Benadryl) Nasal Steroids as needed (Flonase & Nasacort) Anxiety 24722742 F41.9 Doing well on current medication dose -Pt instructed to not abruptly stop buspirone 5 mg-Pt instructed to routinely take medication in order that it may be effective- Avoid alcohol, caffeine, nicotine, and illegal drugs as these can increase the anxiety level and cause sleep problems. Essential hypertension 99209520 I10 phone visit today BP 127/75 Doing well on treatment. Continue medication as prescribed and diet/exerc ise as previously discussed. Take occasional BP s, call if consistent ly >140/90. Discussed reasons for sooner f/u than 6 months. Patient verbalizes understand ing. Gastroesop hageal reflux disease 630768770 K21.9 -Avoid lying flat 3 to 4 hours after eating or drinking. -Elevate the head of bed 4-8 inches. -Avoid tight clothing around the waist. -Decrease dietary fat intake. -Avoid acidic foods (citrus and tomato-bas ed products), alcohol, caffeinate d beverages, chocolate, onions, garlic, salt, and peppermint oil. -Avoid large meals. -Avoid drinking coffee, or carbonated beverages. -Weight loss can help with symptoms, try to diet and exercise. Osteoarthritis 245345672 M19.90 No complaints today-Cont inue Antiinflam matory-may use Biofreeze or Salon Pas patches OTC topically as needed to areas of pain. [id number] Alesia Zelaya NP [facility] [address] [place] [address] 11/21/2020 10:48:17 11/24/2020 08:49:32 Essential hypertension 09305876 I10 Phone visit f/u Home b/p today - 128/79 with pulse of 65 Doing well on treatment. Continue medication as prescribed and diet/exerc ise as previously discussed. Take occasional BP s, call if consistent ly >140/90. Discussed reasons for sooner f/u than 6 months. Patient verbalizes understand ing. Anxiety 58305187 F41.9 Doing well on current medication dose -Pt instructed to not abruptly stop buspirone 5 mg-Pt instructed to routinely take medication in order that it may be effective- Avoid alcohol, caffeine, nicotine, and illegal drugs as these can increase the anxiety level and cause sleep problems. Seasonal allergy 5660215 04 J30.2 Avoidance/ eliminatio n of offending allergens Saline nasal spray or sinus irrigation as needed helps to wash offending particles which are trapped in airways Antihistam sofía as directed (e.g., singular) Nasal Steroids as directed (Flonase) Tolerant non-smoker 8773 9003 Z87.891 Former smokerPt started smoking at the age of 13 and smoked for 20 years - as of yesterday 11/20/2020 was her 12 year anniversar y of not smoking. Gastroesop hageal reflux disease 135248230 K21.9 -Avoid lying flat 3 to 4 hours after eating or drinking. -Elevate the head of bed 4-8 inches. -Avoid tight clothing around the waist. -Decrease dietary fat intake. -Avoid acidic foods (citrus and tomato-bas ed products), alcohol, caffeinate d beverages, chocolate, onions, garlic, salt, and peppermint oil. -Avoid large meals. -Avoid drinking coffee, or carbonated beverages. -Weight loss can help with symptoms, try to diet and exercise. Osteoarthritis 766003708 M19.90 No complaints today-Cont inue Antiinflam matory-may use Biofreeze or Salon Pas patches OTC topically as needed to areas of pain. [id number] Alesia Zelaya NP [facility] [address] [place] [address] 03/18/2021 13:50:08 03/18/2021 15:03:29 Essential hypertension 30971729 I10 Pt does check BP at home Home b/p today - 127/81 with pulse of 72 Doing well on treatment. Continue medication as prescribed and diet/exerc ise as previously discussed. Take occasional BP s, call if consistent ly >140/90. Discussed reasons for sooner f/u than 6 months. Patient verbalizes understand ing. Gastroesop hageal reflux disease 609741096 K21.9 Controlled with current medication s-Avoid lying flat 3 to 4 hours after eating or drinking.- Elevate the head of bed 4-8 inches.-Av oid tight clothing around the waist.-Dec rease dietary fat intake.-Av oid acidic foods (citrus and tomato-bas ed products), alcohol, caffeinate d beverages, chocolate, onions, garlic, salt, and peppermint oil.-Avoid large meals.-Charlie id drinking coffee, or carbonated beverages. -Weight loss can help with symptoms, try to diet and exercise. Osteoarthritis 024338814 M19.90 No complaints today-Cont inue Antiinflam matory uses as needed-may use Biofreeze or Salon Pas patches OTC topically as needed to areas of pain. Anxiety 38501994 F41.9 Doing well on current medication dose -Pt instructed to not abruptly stop buspirone 5 mg-Pt instructed to routinely take medication in order that it may be effective- Avoid alcohol, caffeine, nicotine, and illegal drugs as these can increase the anxiety level and cause sleep problems. Seasonal allergy 7528585 04 J30.2 Controlle dwith medication sAvoidance /eliminati on of offending allergens Saline nasal spray or sinus irrigation as needed helps to wash offending particles which are trapped in airways Antihistam sofía as directed (e.g., singular) Nasal Steroids as directed (Flonase) Administra tion of SARS-CoV-2 antigen vaccine 092061696 Z23 declines Screening for malignant neoplasm of cervix 809120442 Z12.4 declines Ex-smoker 5051258 Z87.89 1 Pt quite 10 years agostarted age 13smoked 18 years1/2 pack per day Screening mammography 24 994432 Z12.31 Body mass index 25-29 - overweight 611414772 Z68.26 Advised decreased portion sizes, good food choices, limited eating out or fast food and eliminate soda and juice from diet. Advised physical activity daily and offered encouragem ent to continue with positive changes made so far. [id number] Alesia Zelaya NP [facility] [address] [place] [address] 10/27/2021 13:39:53 10/28/2021 13:37:02 Gastroesophageal reflux disease 059956909 K21.9 Controlled with current medication s-Avoid lying flat 3 to 4 hours after eating or drinking.- Elevate the head of bed 4-8 inches.-Av oid tight clothing around the waist.-Dec rease dietary fat intake.-Av oid acidic foods (citrus and tomato-bas ed products), alcohol, caffeinate d beverages, chocolate, onions, garlic, salt, and peppermint oil.-Avoid large meals.-Charlie id drinking coffee, or carbonated beverages. -Weight loss can help with symptoms, try to diet and exercise. Essential hypertension 04997337 I10 Pt does check BP at home normally range in 120s/80s Declines increase in losartan- states she did not take her anxiety medication or clonidine today Take occasional BP s, call if consistent ly >140/90 call office for further evaluation and medication change Discussed reasons for sooner f/u than 6 months. Patient verbalizes understand ing. Anxiety 76863372 F41.9 Doing well on current medication dose -Pt instructed to not abruptly stop buspirone 5 mg-Pt instructed to routinely take medication in order that it may be effective- Avoid alcohol, caffeine, nicotine, and illegal drugs as these can increase the anxiety level and cause sleep problems. Osteoarthritis 823900388 M19.90 No complaints today-Cont inue Antiinflam matory uses as needed-may use Biofreeze or Salon Pas patches OTC topically as needed to areas of pain. Seasonal allergy 7061585 04 J30.2 Controlle dwith medication sAvoidance /eliminati on of offending allergens Saline nasal spray or sinus irrigation as needed helps to wash offending particles which are trapped in airways Antihistam sofía as directed (e.g., singular) Nasal Steroids as directed (Flonase) Cervical c ancer Papanicolaou smear screening declined 8238770268 83432 Z53.20 declines Body mass index 20-24 - normal 121985069 Z68.24 BMI 24.1 [id number] Alesia Zelaya NP [facility] [address] [place] [address] 04/30/2022 14:16:19 04/30/2022 15:34:35 Gastroesophageal reflux disease 159661116 K21.9 Controlled with current medication s-Avoid lying flat 3 to 4 hours after eating or drinking.- Elevate the head of bed 4-8 inches.-Av oid tight clothing around the waist.-Dec rease dietary fat intake.-Av oid acidic foods (citrus and tomato-bas ed products), alcohol, caffeinate d beverages, chocolate, onions, garlic, salt, and peppermint oil.-Avoid large meals.-Charlie id drinking coffee, or carbonated beverages. -Weight loss can help with symptoms, try to diet and exercise. Essential hypertension 26261460 I10 BP in office 142/80Pt does check BP at home normally range in 120s/80s Declines increase in losartan- states she did not take her anxiety medication or clonidine today Take occasional BP s, call if consistent ly >140/90 call office for further evaluation and medication change Discussed reasons for sooner f/u than 6 months. Patient verbalizes understand ing. Anxiety 71970632 F41.9 Doing well on current medication dose -Pt instructed to not abruptly stop buspirone 5 mg-Pt instructed to routinely take medication in order that it may be effective- Avoid alcohol, caffeine, nicotine, and illegal drugs as these can increase the anxiety level and cause sleep problems. Osteoarthritis [id number] M19.90 No complaints today-Cont inue Antiinflam matory uses as needed-may use Biofreeze or Salon Pas patches OTC topically as needed to areas of pain. Seasonal allergy [id number] 04 J30.2 Controlle dwith medication sAvoidance /eliminati on of offending allergens Saline nasal spray or sinus irrigation as needed helps to wash offending particles which are trapped in airways Antihistam sofía as directed (e.g., singular) Nasal Steroids as directed (Flonase) Cervical c ancer Papanicolaou smear screening declined [id number] 53808 Z53.20 declines Body mass index 20-24 - normal 211807552 Z68.24 BMI 24.1 HIV screen ing declined [id number] 96434 Z53.20 Screening mammography 24 626674 Z12.31 [id number] Alesia Zelaya NP [facility] [address] [place] [address] 11/08/2022 14:02:35 11/09/2022 12:08:29 Anxiety 79601131 F41.9 Doing well on current medication dose -Increased buspirone to 7.5 mg-Pt instructed to routinely take medication in order that it may be effective- Avoid alcohol, caffeine, nicotine, and illegal drugs as these can increase the anxiety level and cause sleep problems. Essential hypertension 57749211 I10 Pt does check BP at home normally range in 120s/80s-C ontinues Losartan as directed and clonidine PRN Gastroesop hageal reflux disease 396439245 K21.9 Controlled with current medication s- Will continue Osteoarthritis 334164563 M19.90 No complaints today-Cont inue Antiinflam matory uses as needed-may use Biofreeze or Salon Pas patches OTC topically as needed to areas of pain. Seasonal allergy 6945296 04 J30.2 Controlled with medication sAvoidance /eliminati on of offending allergensS nevin nasal spray or sinus irrigation as needed helps to wash offending particles which are trapped in airwaysAnt ihistamine s as directed (e.g., singular)N ellyn Steroids as needed (Flonase) Former lig ht tobacco smoker [id number] 48956 Z87.891 quit in 2007 Overweight 412206253 E66 .3 Encourage heart healthy diet and increasing exercise-p ortion control, decreasing processed foods as well as to avoid foods high in sat fats.How to make healthier choices including choosing a plant based diet.Educa tion given on daily exercise. Cervical c ancer Papanicolaou smear screening declined [id number] 26089 Z53.20 declines [id number] Alesia Zelaya, ISAK [facility] [address] [place] [address] 06/02/2023 13:53:03 06/08/2023 15:30:06 Anxiety 30941467 F41.9 Doing well on current medication dose -Increased buspirone to 7.5 mg BID-Pt instructed to routinely take medication in order that it may be effective- Avoid alcohol, caffeine, nicotine, and illegal drugs as these can increase the anxiety level and cause sleep problems. Essential hypertension 47094214 I10 Pt does check BP at home normally range in 120s/80s-C ontinues Losartan as directed and clonidine PRN Gastroesop hageal reflux disease 933294295 K21.9 Controlled with current medication s- Will continue Osteoarthritis 428702623 M19.90 No complaints today-Cont inue Antiinflam matory uses as needed-may use Biofreeze or Salon Pas patches OTC topically as needed to areas of pain. Seasonal allergy 5426423 04 J30.2 Controlled with medication sAvoidance /eliminati on of offending allergensS nevin nasal spray or sinus irrigation as needed helps to wash offending particles which are trapped in airwaysAnt ihistamine s as directed (e.g., singular)N ellyn Steroids as needed (Flonase) Cervical c ancer Papanicolaou smear screening declined 8323678048 17031 Z53.20 declines HIV screen ing declined 8719214120 41796 Z53.20 Overweight 061301986 E66 .3 Encourage heart healthy diet and increasing exercise-p ortion control, decreasing processed foods as well as to avoid foods high in sat fats.How to make healthier choices including choosing a plant based diet.Educa tion given on daily exercise. [id number] Alesia Zelaya NP [facility] [address] [place] [address] 12/26/2023 15:27:26 12/27/2023 08:44:24 Essential hypertension 63364317 I10 BP mildly elevated in office today 146/92Pt does check BP at home normally range in 120s/80s-C ontinues Losartan as directed and clonidine PRNWill re-evaluat e next visit Ganglion cyst 62356051 M 67.479 Left footPt has intermitte nt painDeclin es for imaging or treatment at this time [id number] Alesia Zelaya NP [facility] [address] [place] [address] 06/20/2024 10:49:15 06/22/2024 07:29:57 Gastroesophageal reflux disease 038424371 K21.9 Controlled with current medication sContinue current medicine Essential hypertension 97407163 I10 BP mildly elevated in office today 138/88Pt does check BP at home normally range in 120s/80s-i ncreased Losartan to 50 mg daily as directed and clonidine PRNWill re-evaluat e next visit Osteoarthritis 812499631 M19.90 Controlled with anti-infla mmatory when needed-may use Biofreeze or Salon Pas patches OTC topically as needed to areas of pain. Anxiety 51264544 F41.9 Doing well with medication We will continue current dose -Pt instructed to routinely take medication in order that it may be effective -Avoid alcohol, caffeine, nicotine, and illegal drugs as these can increase the anxiety level and cause sleep problems. HIV screen ing declined 2098496502 68733 Z53.20 Cervical c ancer Papanicolaou smear screening declined 5162906264 30708 Z53.20 declines Pain in left foot 109861 4139 94526 M79.672 Differenti als-arthri tis, cyst, mass, inflammati on Adult heal th examination 497869101 Z00.00 Discussed with patient clinical finding and diagnosis. Discussed plan of care including treatment options, risks, and benefits with patients.P atient expressed understand ing.The following interventi ons were recommende d: heart healthy low-fat, low-sodium diet, ideal body weight, regular exercise, medication s compliance , and medical follow-up as noted.Labs due orders given today for Jose Ramon in [place] Vitamin D deficiency 347 51529 E55.9 Varicose v eins of lower extremity 46004722 I83.93 Discussed with patient starting with:-Wear compressio n stockings during the day to help relieve symptoms and improve blood flow.-Elev ating legs when possible, avoid standing in 1 spot for long periods of timeIf symptoms do not improve we will refer to vascular for further evaluation and possible treatment [id number] Cosme Holloway DPM [facility] [address] [place] [address] 07/18/2024 13:58:19 07/20/2024 08:15:51 Bone spur of left foot 4781078134 87445 M25.775 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 Spiking in AM and OM around 160s/90sto day in office 153/92-has had losartan & 2 prn clonidine this am-Continu e losartan to 100 mg daily as directed and clonidine PRN-Discus sed low salt diet- strong family hx - Mother HTN & AFib, Father CVD -FL age 64Referral to cardio Normal weight 02666509 Z 68.22 Encourage heart healthy diet and increasing exercise-p ortion control, decreasing processed foods as well as to avoid foods high in sat fats.How to make healthier choices.Ed ucation given on daily exercise. Cervical c ancer Papanicolaou smear screening declined 8444564854 24249 Z53.20 declines Pneumococc al vaccination declined 503160489 Z28.21 declines SARS-CoV-2 mRNA vaccine declined 0287813693 Z28.21 declines Chest pain 17837357 I10 intermitte ntrecent hx uncontroll ed htn & family hx CVDEKG orderrefer ring to Cardiology for further evaluation for stress /echo Gastroesop hageal reflux disease without esophagitis 283194900 K21.9 Increasing symptoms D/C famotidine and starting pantoprazo lef/u 6 weeks Health Concerns Section Related Observation LastModified by Organization Detai ls LastModified Time None Recorded Concern Status LastModified by Organization Details LastModified Time None Recorded Advance Directives Directive N: Payers Encounter Date Sequence Insurance Name Policy Number Policy Mcfadden Covered Member ID Mcfadden Member ID Guarantor Name 06/02/2023 1 [facility] ON OR AFTER 03/12/21 (MEDICAID REPLACEMENT - HMO) Jennifer Reddy [id number] Jennifer Reddy 12/26/2023 1 [facility] ON OR AFTER 03/12/21 (MEDICAID REPLACEMENT - HMO) Jennifer Reddy [id number] Jennifer Reddy 06/20/2024 1 [facility] ON OR AFTER 03/12/21 (MEDICAID REPLACEMENT - HMO) Jennifer Reddy [id number] Jennifer Reddy 07/18/2024 1 [facility] ON OR AFTER 03/12/21 (MEDICAID REPLACEMENT - HMO) Jennifer Reddy [id number] Jennifer Reddy 10/26/2024 1 [facility] ON OR AFTER 03/12/21 (MEDICAID REPLACEMENT - HMO) Jennifer Reddy [id number] Jennifer Reddy Notes Date Note Type Note Provider Name and Address Organization Details Recorded Time 06/02/2023 text/html Pt is doing phon e call appointment for 6m recheck/refillPt wishes to discuss nothingPt denies any CP, SOB, Edema Alesia Zelaya NP Attn: [address] [facility], [place], [address], [place] [facility] 06/02/2023 14:19:49 12/26/2023 text/html Pt presents toda y for a knot on left foot that she first noticed 2-3 years ago and is getting bigger that aches all the times that gets worse at times.Pt denies chest pain, SOB and edema Alesia Zelaya NP Attn: [address] [facility] [place] [facility], [place], [address], [facility] 12/26/2023 21:44:07 06/20/2024 text/html Patient reports she is here for an annual exam and also wants to discuss increasing pain in left foot due to raised area. She goes on to state that her pain can go up to a 7 and with wearing shoes it is worse, she is ready for imaging and a specialty referral if neededShe also reports increasing pain with veins in her legsPt denies chest, SOB, and edema Alesia Zelaya NP Attn: [address]ing[address] [facility], [place], [address], [facility] 06/20/2024 11:55:25 07/18/2024 text/html Patient presents today for initial office visit complaining that she has pain on the top of her left foot. States that she has a big not in shoes referred here for evaluation. States it hurts whenever shoes compressive. States that occasionally it hurts whenever she is on her feet for long periods of time. She denies any trauma. States occasionally it does swell. Patient also complains of tightness in the back of her left leg. Cosme Holloway, DPM [address] [place], [address], [facility] 07/19/2024 12:15:30 10/26/2024 text/html Pt presents to office for HTN concerns. pt states her losartan was just increased to 100mg daily. pt states her BP spikes in the AM and PM. Notes readings are 160/90s but middle of the day is usually 120s/80s. pt is using prn clonidine and it does bring down her BP. Pt has had 2 clonidines already today and reading of BP is 153/92. Pt notes when BP is high she has RICKETTS and achy BLE. Pt notes chest pain on and off with high BP but also does not now if her anxiety or not. pt denies any SOB, or any edema. Alesia Zelaya NP Attn: Accounting,[address] [facility], [place], [address], [place] - [facility] 10/26/2024 14:20:31 OBGyn Episode No OBEpisode recorded.
--- OUTSIDE RECORDS SUMMARY | 2024-12-27 16:01 | XMS_ITS | Clinical Summary ---
Author Organization [facility] Address [address] [place] [address] Care Team Providers Care Community Representative Name Role Phone Cosme Bland MD Primary Care Provider Unavaila ble Social History Tobacco Use Types Packs/Day Years Used Date Smoking Tobacco: Never Assessed Comments Unknown Sex and Gender Information Value Date Recorded Sex Assigned at Not on file Legal Sex Female 7:32 PM CDT Gender Identity Not on file Sexual Orientation Not on file Plan of Treatment Health Maintenance Due Date Last Done Comments Cervical Cancer Screening Pa p Smear (Age 30 to 64) Every 3 Years 1963 Colorectal Cancer Screening Colonoscopy (10 Years) 1963 Annual Physical 1966 Hepatitis C 1981 DTaP, Tdap and Td Vaccines ( 1 - Tdap) 1982 Cervical Cancer Screening Pa p with HPV Testing (Age 30 to 64) Every 5 Years 1993 Cervical Cancer Screening with HPV 1993 Mammogram Screening 2003 Zoster Vaccines (1 of 2) 2013 COVID-19 Vaccine (2023-2 5 season) 2024 RSV Immunization or 60+ Years (1 - 1-dose 75+ series) 2038 Meningococcal B Vaccine Aged Out No l onger eligible based on patient's age to complete this topic Meningococcal Vaccine Aged Out No donavan braxton eligible based on patient's age to complete this topic Pneumococcal Vaccine: Pediat rics (0 to 5 Years) and At-Risk Patients (6 to 49 Years) Aged Out No longer eligible b ased on patient's age to complete this topic RSV Immunizations Under 20 Months Aged Out No longer eligible based on patient's age to complete this topic Care Teams Community Representative Relationship Specialty Start Date End Date Cosme Bland MD PCP - General 07/27/16
== END 2024-12-27 15:55 | disposition home or self-care (01) ==
DX: Z12.31 Encounter for screening mammogram for malignant neoplasm of breast (principal)
CPT/HCPCS: 77063; 77067